=== PATIENT | female | born 1975 | race Caucasian/White ===

== ENCOUNTER 2016-09-12 17:01 | Emergency (ER) | payer MEDICAID ==
--- NOTE | 2016-09-12 17:39 | EDM.PDOC ---
ED HPI GENERAL MEDICAL PROBLEM - General Chief Complaint: Flank Pain Stated Complaint: POSSIBLE BLADDER/KIDNEY INFECTION Time Seen by Provider: 09/12/16 17:35 Source of Information: Reports: Patient History Limitations: Reports: No Limitations - History of Present Illness INITIAL COMMENTS - FREE TEXT/NARRATIVE: HISTORY AND PHYSICAL: History of present illness: [Pt comes to the ER complaining of pain to her R low back. Has been present for the past 4 days. She saw her primary care provider in [place] 2 days ago when she was given an antibiotic injection for UTI. She has not had any improvement in her symptoms and so presents to the emergency room for evaluation, accompanied by her . Has not had any fever or chills but has been states that her body has felt warmer than usual. She denies chest pain, shortness of breath and difficulty breathing. No pain with urinating and no blood in her urine. Complains of right flank pain, is otherwise pain-free. No radiation of pain into her lower abdomen or groin. No swelling to her feet or lower legs. She is in the [facility] visiting her mother and plans to remain here until she is feeling improved. Kidney stone ureteral calculus] Review of systems: As per history of present illness and below otherwise all systems reviewed and negative. Past medical history: As per history of present illness and as reviewed below otherwise noncontributory. Surgical history: As per history of present illness and as reviewed below otherwise noncontributory. Social history: No reported history of drug or alcohol abuse. Family history: As per history of present illness and as reviewed below otherwise noncontributory. Physical exam: General: Patient is obviously uncomfortable and is moaning while lying on exam table. HEENT: Atraumatic, normocephalic. Edentulous. mucous membranes moist, throat clear. neck supple, nontender, no lymphadenopathy. Lungs: Clear to auscultation, breath sounds equal bilaterally, chest nontender. Heart: S1S2, regular rate and rhythm. negative for clicks, rubs, or JVD. Abdomen: Soft, nondistended, nontender. Is exquisitely tender over right flank. No masses guarding or rebound. Negative for costovertebral tenderness. Pelvis: Stable nontender. Genitourinary: Deferred. Rectal: Deferred. Extremities: Atraumatic. No cyanosis or edema to feet or lower legs. Neurovascular unremarkable. Neuro: Awake, alert, oriented. Motor and sensory unremarkable throughout. Exam nonfocal. Diagnostics: [UA w/ micro, CT abdomen and pelvis w/o contrast] Therapeutics: [Toradol 30mg IV, 1 liter NS] Impression: [Right ureteral stone] Plan: [Discuss CT results with the patient and her . CT shows a 3 mm partially obstructing right ureteral stone. Patient is given the option of hospitalization which she declines. She thinks that she can manage at home with pain medications. She is urged to push fluids and strain her urine. Rx is are given for Ketorolac 10 mg #20 sig one every 6 hours zero refills, hydrocodone 5/ 325 #30 sig one by mouth every 4-6 hours as needed for pain zero refills, Flomax 0.4 mg #10 sig one by mouth daily no refills. Patient in agreement with today's plan. All of her questions are answered and concerns are addressed.] Definitive disposition and diagnosis as appropriate pending reevaluation and review of above. l Right Flank Pain Score (Numeric/FACES): 8 - Related Data Allergies Allergy/AdvReac Type Severity Reaction Status Date / Time codeine Allergy Vomiting Verified 09/12/16 17:06 Home Meds: Home Meds . [No Known Home Meds] 09/01/13 [History] Social & Family History - Tobacco Use Years of Tobacco use: 10 Second Hand Smoke Exposure: Yes - Alcohol Use Days Per Week of Alcohol Use: 0 - Recreational Drug Use Recreational Drug Use: No ED ROS GENERAL - Review of Systems Review Of Systems: ROS reveals no pertinent complaints other than HPI. ED EXAM, GI/ABD - Physical Exam Exam: See Below Course - Vital Signs Last Recorded V/S: Last Vital Signs Temp 97.3 F 09/12/16 17:06 Pulse 117 H 09/12/16 17:06 Resp 18 09/12/16 17:06 BP 92/57 L 09/12/16 17:06 Pulse Ox 99 09/12/16 17:06 - Orders/Labs/Meds Orders: Active Orders 24 hr Category Date Time Status Abdomen Pelvis wo Cont [CT] Stat Exams 09/12/16 17:45 Taken CULTURE URINE [RM] Stat Lab 09/12/16 17:20 Received Labs: Laboratory Tests 09/12/16 Range/Units 17:20 Urine Color YELLOW Urine Appearance CLEAR Urine pH 6.0 (5.0-8.0) Ur Specific [place] 1.010 (1.001-1.035) Urine Protein 30 (NEGATIVE) mg/dL Urine Glucose (UA) NEGATIVE (NEGATIVE) mg/dL Urine Ketones NEGATIVE (NEGATIVE) mg/dL Urine Occult Blood LARGE H (NEGATIVE) Urine Nitrite NEGATIVE (NEGATIVE) Urine Bilirubin NEGATIVE (NEGATIVE) Urine Urobilinogen 4.0 H (<2.0) EU/dL Ur Leukocyte Esterase MODERATE (NEGATIVE) Urine RBC 3-6 (0-2/HPF) Urine WBC 30-35 (0-5/HPF) Ur Epithelial Cells MODERATE (NONE-FEW) Urine Bacteria FEW (NEGATIVE) Meds: Medications Discontinued Medications Generic Name Dose Route Start Last Admin Trade Name Lei PRN Reason Stop Dose Admin Sodium Chloride 1,000 mls @ 999 mls/hr 09/12/16 17:45 09/12/16 18:05 Normal Saline IV 09/12/16 18:45 999 mls/hr STAT ONE Administration Ketorolac Tromethamine 30 mg 09/12/16 17:45 09/12/16 18:02 Toradol IVPUSH 09/12/16 17:46 30 mg ONETIME ONE Administration Departure - Departure Time of Disposition: 19:40 Disposition: Home, Self-Care 01 Condition: good Clinical Impression: Kidney stone - Discharge Information Instructions: Kidney Stones, [id number] Referrals: PCP,None [Primary Care Provider] - Forms: ED Department Discharge Additional Instructions: The following information is given to patients seen in the emergency department who are being discharged to home. This information is to outline your options for follow-up care. We provide all patients seen in our emergency department with a follow-up referral. The need for follow-up, as well as the timing and circumstances, are variable depending upon the specifics of your emergency department visit. If you don't have a primary care physician on staff, we will provide you with a referral. We always advise you to contact your personal physician following an emergency department visit to inform them of the circumstance of the visit and for follow-up with them and/or the need for any referrals to a consulting specialist. The emergency department will also refer you to a specialist when appropriate. This referral assures that you have the opportunity for follow-up care with a specialist. All of these measure are taken in an effort to provide you with optimal care, which includes your follow-up. Under all circumstances we always encourage you to contact your private physician who remains a resource for coordinating your care. When calling for follow-up care, please make the office aware that this follow-up is from your recent emergency room visit. If for any reason you are refused follow-up, please contact the [facility] emergency department at and asked to speak to the emergency department charge nurse. [facility] [address] [place] [id number] Followup with your primary care provider at the clinic listed above in 48-72 hours. Take medications as prescribed. Push fluids. Return to ER as needed as discussed. - My Orders Last 24 Hours: My Active Orders 09/12/16 17:20 CULTURE URINE [RM] Stat 09/12/16 17:45 Abdomen Pelvis wo Cont [CT] Stat - Assessment/Plan Last 24 Hours: My Active Orders 09/12/16 17:20 CULTURE URINE [RM] Stat 09/12/16 17:45 Abdomen Pelvis wo Cont [CT] Stat
[2016-09-12] MEDS ORDERED: Sodium Chloride 0.9% 1,000 ML IV ONE (17:45)
[2016-09-12] MEDS ORDERED: Ketorolac 30 MG/ML SDV IVPUSH ONE (17:45)
[2016-09-13 05:17] VITALS: BP 100/63
--- NOTE | 2016-09-13 10:15 | CT ---
EXAM DATE: 09/12/16 PATIENT'S AGE: 41 Patient: LINDA SHULTZ Facility: [place], [place] Site . Site : [id number] Study: CT Abdomen/Pelvis [id number]/[id number] 6:48:40 PM Ordering Physician: Doctor Snow Final Report: INDICATION: Right upper quadrant abdominal pain. TECHNIQUE: CT abdomen and pelvis without i.v. contrast. Coronal and sagittal reformats were obtained. COMPARISON: None FINDINGS: Stage Director CT images: Nonobstructive bowel gas pattern. Lower chest: Unremarkable. Liver: Noncontrast evaluation of the liver unremarkable. Spleen: Unremarkable. Pancreas: Unremarkable. Gallbladder and bile ducts: Unremarkable. Kidneys: Asymmetric fullness to the right kidney with mild right hydroureter. Findings suspicious for a mid right ureteral calculus, measuring 3 millimeters on coronal reformat image 40. No left renal or ureteral calculi. Adrenal glands: Unremarkable. GI tract: Limited evaluation without enteric contrast and minimal peritoneal fat. No underlying bowel obstruction. Vascular: Limited evaluation of the mesenteric vessels without IV contrast. Abdominal aorta normal in caliber. Lymph nodes: Unremarkable. Miscellaneous: Unremarkable. No pneumoperitoneum is seen. No significant ascites is noted. Pelvic Organs: Grossly unremarkable appearance to the adnexa and uterus. Mild amount of free pelvic fluid, within normal physiologic limits for premenopausal female. Bones: Unremarkable for age. IMPRESSION: 1. Asymmetric fullness to right kidney and right renal collecting system with likely partially obstructing mid right ureteral calculus measuring 3 millimeters , identified on series 201, image 86. Dictated by Patrick Colón MD @ 09/12/2016 7:21:59 PM Dictated by: Patrick Colón MD @ 09/12/2016 19:22:07 (Electronic Signature) Report Signed by Proxy. [facility]
== END 2016-09-12 20:07 | disposition home or self-care (01) ==
LOC: MW.ED 17:01
DX: N20.2 Calculus of kidney with calculus of ureter (principal); Z88.5 Allergy status to narcotic agent
CPT/HCPCS: 74176; 81001; 87086; 99284; J1885; J7040; 96361; 96374